=== PATIENT | male | born 1980 | race Caucasian/White ===

== ENCOUNTER 2020-08-17 17:41 | Emergency (ER) | payer OTHER ==
[~2020-08-17] VITALS: Ht 167.6 cm; Wt 161.0 kg
[~2020-08-17 17:41] MED LIST: HYDROCODONE-AP1 EAC6 PO; IBUPROFEN 800800 M1 PO
[2020-08-17] MEDS ORDERED: DOXYCYCLINE 10100 MG PO (18:17)
[2020-08-17] MEDS ORDERED: NYSTATIN 100,0015 G1 TOP (18:17)
[2020-08-17 18:27] VITALS: BP 174/88
== END 2020-08-17 18:28 | disposition home or self-care (01) ==
LOC: M.ERS 17:41
DX: B37.2 Candidiasis of skin and nail (principal); J45.909 Unspecified asthma, uncomplicated; I10 Essential (primary) hypertension; Z90.49 Acquired absence of other specified parts of digestive tract